=== PATIENT | male | born 1965 | race Caucasian/White ===

== ENCOUNTER 2021-06-10 15:06 | Emergency (ER) | payer BC ==
[~2021-06-10] VITALS: Ht 177.8 cm; Wt 97.7 kg
[2021-06-10 16:39] VITALS: BP 119/87
[2021-06-10] MEDS ORDERED: PRED20TA PO (17:31)
[2021-06-10] MEDS ORDERED: AZIT-63 PO (17:31)
== END 2021-06-10 18:02 | disposition home or self-care (01) ==
LOC: ER 15:07
DX: J40 Bronchitis, not specified as acute or chronic (principal); Z20.822 Contact with and (suspected) exposure to COVID-19; E84.9 Cystic fibrosis, unspecified; R05 Cough; R53.83 Other fatigue; Z79.2 Long term (current) use of antibiotics; Z79.899 Other long term (current) drug therapy
CPT/HCPCS: 71045; 87635; 99284; C9803

== ENCOUNTER 2024-04-28 15:03 | Inpatient (IN) | payer BC ==
[~2024-04-28] VITALS: Ht 177.8 cm; Wt 98.5 kg
[2024-04-28 15:45] LABS: BILIRUBIN,URINE MODERATE (Neg); CLARITY,URINE CLEAR (Clear); COLOR,URINE YELLOW (Yellow); GLUCOSE, URINE 250 mg/dl (Neg); KETONES,URINE >=80 mg/dl (Neg); LEUKOCYTE ESTERASE ,URINE NEGATIVE (Neg); NITRITES, URINE NEGATIVE (Neg); OCCULT BLOOD,URINE NEGATIVE (Neg); PH,URINE 5.5 (4.8-8.0); PROTEIN,URINE 30 mg/dl (Neg)
[2024-04-28 15:50] LABS: UA COLLECTION TYPE CLN CATCH MIDSTREAM
[2024-04-28 15:52] LABS: SQUAMOUS EPITHELIAL CELL,UR FEW /LPF (FEW)
[2024-04-28 15:53] LABS: BACTERIA,URINE FEW /HPF (Neg); HYALINE CASTS 0-3 /LPF (NEGATIVE); RBC,URINE NONE SEEN /HPF (0-2); WBC,URINE 0-4 /HPF (0-4)
[2024-04-28 16:02] LABS: BASOPHILS % (AUTO) 0.2 % (0-1); EOSINOPHILS % (AUTO) 0.2 % (0-6); HEMATOCRIT 50.7 % (42.0-52.0); HEMOGLOBIN 16.6 g/dl (14.0-17.9); LYMPHOCYTES # (AUTO) 1.1 X10'3 (1.1-4.8); LYMPHOCYTES % (AUTO) 9.1 % (21-51); MEAN CORPUSCULAR HEMOGLOBIN 31.1 PG (27.0-31.0); MEAN CORPUSCULAR HGB CONC 32.8 g/dL (33.0-36.5); MEAN CORPUSCULAR VOLUME 94.6 FL (78-98); MONOCYTES # (AUTO) 0.8 X10'3 (0-0.9); MONOCYTES % (AUTO) 6.5 % (2-12); PLATELET COUNT 218 X10'3 (140-440); RED BLOOD COUNT 5.36 X10'6 (4.70-6.10); RED CELL DISTRIBUTION WIDTH 14.5 % (11.5-14.5); WHITE BLOOD COUNT 11.9 X10'3 (4.5-11.0)
[2024-04-28 16:14] LABS: ALANINE AMINOTRANSFERASE 848 U/L (12-78); ALBUMIN 3.9 G/DL (3.4-5.0); ALKALINE PHOSPHATASE 347 IU/L (46-116); ANION GAP 13 (8-16); ASPARTATE AMINO TRANSFERASE 439 U/L (10-37); BILIRUBIN,TOTAL 6.3 MG/DL (0.1-1.0); BLOOD UREA NITROGEN 18 MG/DL (7-18); BUN/CREATININE RATIO 19.8 (10.0-20.0); CALCIUM 9.2 MG/DL (8.5-10.1); CHLORIDE 99 MMOL/L (99-107); CREATININE 0.91 MG/DL (0.60-1.10); GLUCOSE 89 MG/DL (70-104); SODIUM 136 MMOL/L (135-145); TOTAL CARBON DIOXIDE 23.6 MMOL/L (24-32); eCRCL 89 ML/MIN; eGFR 85 ML/MIN
[2024-04-28 16:49] LABS: TOTAL PROTEIN 7.7 G/DL (6.4-8.2)
[2024-04-28] MEDS: normal saline 1000ml 1,000 ML IV ONE (17:00)
[2024-04-28] MEDS: ondansetron/PF 4mg/2ml inj IV ONE (17:02)
[2024-04-28 17:08] LABS: LIPASE > 375 U/L (16-77)
[2024-04-28] MEDS ORDERED: SPIR25TA5 PO (18:11)
[2024-04-28] MEDS ORDERED: POTA-280 (18:11)
[2024-04-28] MEDS ORDERED: SACU1TAB PO (18:11)
[2024-04-28] MEDS ORDERED: CARV6.253 PO (18:11)
[2024-04-28] MEDS ORDERED: ATOR40TA72 PO (18:11)
[2024-04-28] MEDS ORDERED: FURO20TA4 PO (18:11)
[2024-04-28] MEDS ORDERED: CARV6.2553 PO (18:11)
[2024-04-28] MEDS ORDERED: EMPA10TA PO (18:11)
[2024-04-28] MEDS ORDERED: ASPI-611 PO (18:13)
[2024-04-28] MEDS ORDERED: acetaminophen 325mg tablet PO PRN (18:35)
[2024-04-28] MEDS ORDERED: potassium Cl 20 mEq SR tablet PO PRN (18:35)
[2024-04-28] MEDS ORDERED: morphine 2 MG/ML inj. syringe IV PRN ×2 (18:35)
[2024-04-28] MEDS ORDERED: magnesium Cl slow-release 64mg tablet PO PRN (18:35)
[2024-04-28] MEDS ORDERED: potassium Cl 40MEQ/1/2NS 520ml 520 ML IV PRN (18:35)
[2024-04-28] MEDS ORDERED: magnesium hydroxide 30ml (MOM) UD suspension PO PRN (18:35)
[2024-04-28] MEDS ORDERED: magnesium sulf-water 2g/50mL 50 ML IV PRN (18:35)
[2024-04-28] MEDS ORDERED: magnesium sulf-water 4G/100mL 100 ML IV PRN (18:35)
[2024-04-28 19:03] LABS: ETHANOL < 10 MG/DL (<10)
[2024-04-28 19:06] LABS: HEMOGLOBIN A1C 5.4 % (4.5-6.2)
[2024-04-28 19:07] LABS: ACETAMINOPHEN < 2.0 UG/ML (10-30)
[2024-04-28] MEDS: K and/or MAG REPLACEMENT MC SCH (20:00)
[2024-04-28] MEDS: normal saline 1000ml 1,000 ML IV SCH (20:13)
[2024-04-28 20:15] VITALS: BP 146/79; PULSE 83; RESP 16; TEMP 98; O2SAT 98
[2024-04-28] MEDS: ondansetron/PF 4mg/2ml inj IV PRN (20:23)
[2024-04-28 20:30] VITALS: RESP 16; O2SAT 98
[2024-04-28 22:00] VITALS: BP 142/82; PULSE 82; RESP 16; TEMP 98.3; O2SAT 98
[2024-04-29 03:50] VITALS: O2SAT 98
[2024-04-29] MEDS ORDERED: MELA5TAB12 PO (03:55)
[2024-04-29 06:00] VITALS: BP 137/78; PULSE 83; RESP 16; TEMP 97.3; O2SAT 95
[2024-04-29 08:19] LABS: BASOPHILS % (AUTO) 0.1 % (0-1); EOSINOPHILS % (AUTO) 0.1 % (0-6); HEMATOCRIT 46.3 % (42.0-52.0); HEMOGLOBIN 15.6 g/dl (14.0-17.9); LYMPHOCYTES # (AUTO) 0.9 X10'3 (1.1-4.8); LYMPHOCYTES % (AUTO) 7.9 % (21-51); MEAN CORPUSCULAR HEMOGLOBIN 31.7 PG (27.0-31.0); MEAN CORPUSCULAR HGB CONC 33.6 g/dL (33.0-36.5); MEAN CORPUSCULAR VOLUME 94.2 FL (78-98); MEAN PLATELET VOLUME 7.3 FL (7.4-10.4); MONOCYTES % (AUTO) 8.6 % (2-12); NEUTROPHILS % (AUTO) 83.3 % (42-75); PLATELET COUNT 208 X10'3 (140-440); RED BLOOD COUNT 4.92 X10'6 (4.70-6.10); RED CELL DISTRIBUTION WIDTH 14.2 % (11.5-14.5)
[2024-04-29 08:28] LABS: ALANINE AMINOTRANSFERASE 681 U/L (12-78); ALBUMIN 3.4 G/DL (3.4-5.0); ALKALINE PHOSPHATASE 325 IU/L (46-116); ANION GAP 11 (8-16); ASPARTATE AMINO TRANSFERASE 330 U/L (10-37); BILIRUBIN,TOTAL 5.3 MG/DL (0.1-1.0); BLOOD UREA NITROGEN 15 MG/DL (7-18); BUN/CREATININE RATIO 18.3 (10.0-20.0); CALCIUM 8.6 MG/DL (8.5-10.1); CHLORIDE 102 MMOL/L (99-107); CREATININE 0.82 MG/DL (0.60-1.10); GLUCOSE 69 MG/DL (70-104); HDL CHOLESTEROL 34 MG/DL (35-60); LDL CHOLESTEROL 51 MG/DL (50-100); POTASSIUM 3.7 MMOL/L (3.5-5.1); SODIUM 138 MMOL/L (135-145); TOTAL CARBON DIOXIDE 24.7 MMOL/L (24-32); eCRCL 99 ML/MIN; eGFR > 90 ML/MIN
[2024-04-29 08:29] LABS: CHOL/HDL RATIO 2.8 (0.00-4.99); CHOLESTEROL 95 MG/DL (0-200); TOTAL PROTEIN 6.7 G/DL (6.4-8.2); TRIGLYCERIDES 82 MG/DL (20-135)
[2024-04-29 09:19] LABS: BILIRUBIN,DIRECT 3.5 MG/DL (0-0.3)
[2024-04-29 11:09] LABS: INR 1.1 INR; PROTHROMBIN TIME 11.8 SECONDS (9.0-12.0)
[2024-04-29 12:00] VITALS: BP 141/80; PULSE 81; RESP 14; TEMP 98.1; O2SAT 94
[2024-04-29 14:04] LABS: LIPASE > 375 U/L (16-77)
[2024-04-29 18:00] VITALS: BP 135/74; PULSE 81; RESP 19; TEMP 97.8; O2SAT 95
[2024-04-29 20:00] VITALS: RESP 18; O2SAT 95
[2024-04-29] MEDS ORDERED: diatrozoate meglu/diatrozoate sod (37% iodine) 120ML oral solution PO SCH (21:10)
[2024-04-29] MEDS: carvedilol 6.25mg tablet PO SCH (21:19)
[2024-04-29] MEDS: Melatonin 3mg tablet PO SCH (21:20)
[2024-04-29] MEDS: sacubitril/valsartan 24mg-26mg tablet PO SCH (21:20)
[2024-04-29 22:00] VITALS: BP 130/79; PULSE 88; RESP 14; TEMP 98.2; O2SAT 95
[2024-04-30 03:20] VITALS: O2SAT 95
[2024-04-30 05:18] LABS: BASOPHILS % (AUTO) 0.1 % (0-1); EOSINOPHILS # (AUTO) 0.1 X10'3 (0-0.9); EOSINOPHILS % (AUTO) 0.9 % (0-6); HEMOGLOBIN 14.6 g/dl (14.0-17.9); LYMPHOCYTES # (AUTO) 1.2 X10'3 (1.1-4.8); LYMPHOCYTES % (AUTO) 9.9 % (21-51); MEAN CORPUSCULAR HEMOGLOBIN 31.2 PG (27.0-31.0); MEAN CORPUSCULAR HGB CONC 33.3 g/dL (33.0-36.5); MEAN CORPUSCULAR VOLUME 93.7 FL (78-98); MEAN PLATELET VOLUME 6.9 FL (7.4-10.4); MONOCYTES # (AUTO) 1.1 X10'3 (0-0.9); MONOCYTES % (AUTO) 9.4 % (2-12); NEUTROPHILS # (AUTO) 9.3 X10'3 (1.8-7.7); NEUTROPHILS % (AUTO) 79.7 % (42-75); PLATELET COUNT 197 X10'3 (140-440); WHITE BLOOD COUNT 11.7 X10'3 (4.5-11.0)
[2024-04-30 05:41] LABS: ALANINE AMINOTRANSFERASE 494 U/L (12-78); ALBUMIN 2.8 G/DL (3.4-5.0); ALBUMIN/GLOBULIN RATIO 0.8 (1.1-1.5); ALKALINE PHOSPHATASE 265 IU/L (46-116); ANION GAP 8 (8-16); ASPARTATE AMINO TRANSFERASE 202 U/L (10-37); BILIRUBIN,TOTAL 1.7 MG/DL (0.1-1.0); BLOOD UREA NITROGEN 12 MG/DL (7-18); CALCIUM 8.4 MG/DL (8.5-10.1); CHLORIDE 105 MMOL/L (99-107); CREATININE 0.75 MG/DL (0.60-1.10); GLUCOSE 92 MG/DL (70-104); POTASSIUM 3.6 MMOL/L (3.5-5.1); SODIUM 139 MMOL/L (135-145); TOTAL CARBON DIOXIDE 25.9 MMOL/L (24-32); TOTAL PROTEIN 6.2 G/DL (6.4-8.2); eCRCL 108 ML/MIN; eGFR > 90 ML/MIN
[2024-04-30 06:00] VITALS: BP 141/82; PULSE 83; RESP 17; TEMP 97.2; O2SAT 96
[2024-04-30 07:07] LABS: LIPASE 349 U/L (16-77)
[2024-04-30] MEDS: diatr meglu/diatrizoate 30ml oral sol.-(3 dose) bottle PO SCH (07:48)
[2024-04-30] MEDS: aspirin 81mg, enteric-coated 1 TAB TABLET.DR PO SCH (08:00)
[2024-04-30] MEDS: atorvastatin 20mg tablet PO SCH (08:00)
[2024-04-30] MEDS: furosemide 20MG tablet PO SCH (08:00)
[2024-04-30] MEDS: EMPAGLIFLOZIN 10 MG TABLET PO SCH (08:00)
[2024-04-30] MEDS ORDERED: iohexol 300mg/ml 100ml inj. ONE (10:47)
[2024-04-30 11:00] VITALS: BP 146/87; PULSE 87; RESP 16; TEMP 98.1; O2SAT 96
[2024-04-30 18:00] VITALS: BP 131/81; PULSE 83; RESP 17; TEMP 97.9; O2SAT 96
[2024-04-30 20:00] VITALS: RESP 17; O2SAT 96
[2024-04-30 22:00] VITALS: BP 143/78; PULSE 78; RESP 20; TEMP 98.7; O2SAT 96
[2024-05-01] VITALS (7 sets, daily range): BP systolic 120–143; BP diastolic 74–88; PULSE 74–84; RESP 16–20; TEMP 97.7–98.4; O2SAT 95–96
[2024-05-01 04:35] LABS: BASOPHILS % (AUTO) 0.2 % (0-1); EOSINOPHILS # (AUTO) 0.2 X10'3 (0-0.9); EOSINOPHILS % (AUTO) 2.1 % (0-6); HEMATOCRIT 43.2 % (42.0-52.0); HEMOGLOBIN 14.6 g/dl (14.0-17.9); LYMPHOCYTES # (AUTO) 1.4 X10'3 (1.1-4.8); LYMPHOCYTES % (AUTO) 12.8 % (21-51); MEAN CORPUSCULAR HEMOGLOBIN 31.7 PG (27.0-31.0); MEAN CORPUSCULAR HGB CONC 33.8 g/dL (33.0-36.5); MEAN CORPUSCULAR VOLUME 93.9 FL (78-98); MEAN PLATELET VOLUME 6.9 FL (7.4-10.4); MONOCYTES # (AUTO) 0.9 X10'3 (0-0.9); MONOCYTES % (AUTO) 8.2 % (2-12); NEUTROPHILS # (AUTO) 8.4 X10'3 (1.8-7.7); NEUTROPHILS % (AUTO) 76.7 % (42-75); PLATELET COUNT 218 X10'3 (140-440)
[2024-05-01 04:49] LABS: ALANINE AMINOTRANSFERASE 394 U/L (12-78); ALBUMIN 2.6 G/DL (3.4-5.0); ALBUMIN/GLOBULIN RATIO 0.7 (1.1-1.5); ALKALINE PHOSPHATASE 218 IU/L (46-116); ANION GAP 11 (8-16); ASPARTATE AMINO TRANSFERASE 137 U/L (10-37); BILIRUBIN,TOTAL 1.5 MG/DL (0.1-1.0); BLOOD UREA NITROGEN 12 MG/DL (7-18); BUN/CREATININE RATIO 16.7 (10.0-20.0); CALCIUM 8.4 MG/DL (8.5-10.1); CHLORIDE 105 MMOL/L (99-107); CREATININE 0.72 MG/DL (0.60-1.10); GLUCOSE 81 MG/DL (70-104); POTASSIUM 3.4 MMOL/L (3.5-5.1); SODIUM 143 MMOL/L (135-145); TOTAL CARBON DIOXIDE 26.6 MMOL/L (24-32); TOTAL PROTEIN 6.3 G/DL (6.4-8.2); eCRCL 113 ML/MIN; eGFR > 90 ML/MIN
[2024-05-01 05:06] LABS: APTT 26 SECONDS (22-32)
[2024-05-01 06:00] LABS: HBSAG SCREEN Negative (Negative); HEP A AB, IGM Negative (Negative); HEP B CORE AB, IGM Negative (Negative); HEPATITIS C VIRUS ANTIBODY Non Reactive (Non Reactive)
[2024-05-01] MEDS: potassium Cl 20 mEq SR tablet PO PRN (10:31)
[2024-05-01] MEDS ORDERED: potassium Cl 20 mEq SR tablet PO PRN (22:00)
[2024-05-02] VITALS (25 sets, daily range): BP systolic 116–181; BP diastolic 65–115; PULSE 67–95; RESP 12–23; TEMP 97.3–99; O2SAT 92–100
[2024-05-02 04:47] LABS: BASOPHILS % (AUTO) 0.3 % (0-1); EOSINOPHILS # (AUTO) 0.3 X10'3 (0-0.9); HEMATOCRIT 41.1 % (42.0-52.0); LYMPHOCYTES # (AUTO) 1.4 X10'3 (1.1-4.8); LYMPHOCYTES % (AUTO) 15.3 % (21-51); MEAN CORPUSCULAR HEMOGLOBIN 32.2 PG (27.0-31.0); MEAN CORPUSCULAR HGB CONC 34.1 g/dL (33.0-36.5); MEAN CORPUSCULAR VOLUME 94.5 FL (78-98); MEAN PLATELET VOLUME 6.6 FL (7.4-10.4); MONOCYTES # (AUTO) 0.7 X10'3 (0-0.9); MONOCYTES % (AUTO) 7.9 % (2-12); NEUTROPHILS # (AUTO) 6.9 X10'3 (1.8-7.7); NEUTROPHILS % (AUTO) 73.5 % (42-75); PLATELET COUNT 225 X10'3 (140-440); RED BLOOD COUNT 4.35 X10'6 (4.70-6.10); RED CELL DISTRIBUTION WIDTH 14.2 % (11.5-14.5); WHITE BLOOD COUNT 9.4 X10'3 (4.5-11.0)
[2024-05-02 05:02] LABS: ALANINE AMINOTRANSFERASE 285 U/L (12-78); ALBUMIN 2.4 G/DL (3.4-5.0); ALBUMIN/GLOBULIN RATIO 0.7 (1.1-1.5); ALKALINE PHOSPHATASE 179 IU/L (46-116); ANION GAP 10 (8-16); ASPARTATE AMINO TRANSFERASE 76 U/L (10-37); BILIRUBIN,TOTAL 1.1 MG/DL (0.1-1.0); BLOOD UREA NITROGEN 12 MG/DL (7-18); BUN/CREATININE RATIO 17.1 (10.0-20.0); CALCIUM 8.3 MG/DL (8.5-10.1); CHLORIDE 105 MMOL/L (99-107); GLUCOSE 85 MG/DL (70-104); MAGNESIUM 1.9 MG/DL (1.5-2.4); POTASSIUM 3.3 MMOL/L (3.5-5.1); SODIUM 141 MMOL/L (135-145); TOTAL CARBON DIOXIDE 25.9 MMOL/L (24-32); TOTAL PROTEIN 5.9 G/DL (6.4-8.2); eCRCL 116 ML/MIN; eGFR > 90 ML/MIN
[2024-05-02] MEDS: potassium Cl 40MEQ/1/2NS 520ml 520 ML IV PRN (05:53)
[2024-05-02] MEDS: BUPIVAcaine/PF 2.5mg/ml (0.25%) 10ml vial ONE (07:03)
[2024-05-02 07:21] LABS: PRE OP INR 1.1 INR; PRE OP PROTIME 11.4 SECONDS (9.0-12.0)
[2024-05-02] MEDS ORDERED: fentaNYL/PF 50MCG/1 ML 2ML syringe IV PRN ×2 (07:45)
[2024-05-02] MEDS ORDERED: enalaprilat dihydrate 2.5mg/2ml vial IV PRN (07:45)
[2024-05-02] MEDS ORDERED: morphine 2 MG/ML inj. syringe IV PRN (07:45)
[2024-05-02] MEDS ORDERED: labetalol 20mg/4ml (5mg/ml) syringe IV PRN (07:45)
[2024-05-02] MEDS: ringers solution, lacted 1,000 ML IV SCH (07:45)
[2024-05-02] MEDS ORDERED: ondansetron/PF 4mg/2ml inj IV PRN (07:45)
[2024-05-02] MEDS ORDERED: K and/or MAG REPLACEMENT MC SCH (08:00)
[2024-05-02] MEDS ORDERED: midazolam 1 mg/ML 2ml injection ONE (08:06)
[2024-05-02] MEDS ORDERED: fentaNYL/PF 50MCG/1 ML 2ML syringe ONE (08:06)
[2024-05-02] MEDS ORDERED: rocuronium 10mg/ml inj IV ONE ×3 (08:08→09:10)
[2024-05-02] MEDS ORDERED: ePHEDrine 50MG/ML INJ. ONE (08:08)
[2024-05-02] MEDS ORDERED: sugammadex 200mg/2ml injection IV ONE (08:09)
[2024-05-02] MEDS ORDERED: propofol inj 20 ML IV ONE (08:11)
[2024-05-02] MEDS ORDERED: LIDOcaine 2% (20mg/ml) 5ml vial ONE (08:11)
[2024-05-02] MEDS ORDERED: dexamethasone sod phosphate 4mg/ml inj. ONE (08:11)
[2024-05-02] MEDS ORDERED: ondansetron/PF 4mg/2ml inj ONE (08:12)
[2024-05-02] MEDS: INDOCYANINE GREEN 25 MG/10 ML VIAL IV ONE (08:22)
[2024-05-02] MEDS: BUPIVAcaine/PF 2.5 mg/ml (0.25%) 30ml vial IJ ONE (09:03)
[2024-05-02] MEDS ORDERED: albumin (Human) 5% 250ml 250 ML IV ONE (09:09)
[2024-05-02] MEDS: BUPIVAcaine 2.5mg/ml inj 50ml vial (contains preservative) ONE (10:14)
[2024-05-02] MEDS: acetaminophen 1,000mg/100ml IV 100 ML IV ONE (10:52)
[2024-05-02] MEDS ORDERED: naloxone 0.4 mg/ml inj IV PRN (11:05)
[2024-05-02] MEDS: morphine 4 MG/ML inj SYRINge IV PRN (11:11)
[2024-05-02] MEDS: carvedilol 6.25mg tablet PO ONE (13:26)
[2024-05-02] MEDS: HYDROcodone/acetaminophen 10/325mg tab PO PRN (13:27)
[2024-05-02] MEDS: ceFOXitin 2GM-NS 100mL ADDvant 100 ML IV SCH (14:13)
[2024-05-02] MEDS: mag hydrox/Alum hydrox/simeth 30ml oral suspension PO PRN (22:00)
[2024-05-03] VITALS (7 sets, daily range): BP systolic 110–139; BP diastolic 68–86; PULSE 55–85; RESP 14–20; TEMP 97.5–99.1; O2SAT 93–100
[2024-05-03 07:10] LABS: BASOPHILS % (AUTO) 0.3 % (0-1); EOSINOPHILS # (AUTO) 0.1 X10'3 (0-0.9); EOSINOPHILS % (AUTO) 0.6 % (0-6); HEMATOCRIT 44.4 % (42.0-52.0); HEMOGLOBIN 14.7 g/dl (14.0-17.9); LYMPHOCYTES # (AUTO) 1.4 X10'3 (1.1-4.8); LYMPHOCYTES % (AUTO) 14.9 % (21-51); MEAN CORPUSCULAR HEMOGLOBIN 31.2 PG (27.0-31.0); MEAN CORPUSCULAR HGB CONC 33.2 g/dL (33.0-36.5); MONOCYTES # (AUTO) 0.8 X10'3 (0-0.9); MONOCYTES % (AUTO) 8.4 % (2-12); NEUTROPHILS # (AUTO) 7.3 X10'3 (1.8-7.7); NEUTROPHILS % (AUTO) 75.8 % (42-75); PLATELET COUNT 257 X10'3 (140-440); RED BLOOD COUNT 4.72 X10'6 (4.70-6.10); RED CELL DISTRIBUTION WIDTH 14.1 % (11.5-14.5); WHITE BLOOD COUNT 9.6 X10'3 (4.5-11.0)
[2024-05-03 07:18] LABS: ALANINE AMINOTRANSFERASE 299 U/L (12-78); ALBUMIN 2.6 G/DL (3.4-5.0); ALBUMIN/GLOBULIN RATIO 0.7 (1.1-1.5); ALKALINE PHOSPHATASE 162 IU/L (46-116); ANION GAP 7 (8-16); ASPARTATE AMINO TRANSFERASE 152 U/L (10-37); BLOOD UREA NITROGEN 8 MG/DL (7-18); BUN/CREATININE RATIO 9.9 (10.0-20.0); CALCIUM 8.2 MG/DL (8.5-10.1); CHLORIDE 103 MMOL/L (99-107); CREATININE 0.81 MG/DL (0.60-1.10); GLUCOSE 118 MG/DL (70-104); MAGNESIUM 1.7 MG/DL (1.5-2.4); POTASSIUM 3.7 MMOL/L (3.5-5.1); SODIUM 138 MMOL/L (135-145); TOTAL CARBON DIOXIDE 28.2 MMOL/L (24-32); TOTAL PROTEIN 6.2 G/DL (6.4-8.2); eCRCL 100 ML/MIN; eGFR > 90 ML/MIN
[2024-05-04 06:05] LABS: MAGNESIUM 1.9 MG/DL (1.5-2.4)
[2024-05-04 07:25] VITALS: BP 125/78; PULSE 84; RESP 15; TEMP 97.4; O2SAT 94
[2024-05-04] MEDS: potassium Cl 20 mEq SR tablet PO PRN (08:40)
[2024-05-04 10:00] VITALS: BP 140/78; PULSE 85; RESP 16; TEMP 98.4; O2SAT 95
[2024-05-04 12:34] LABS: ALANINE AMINOTRANSFERASE 267 U/L (12-78); ALBUMIN 2.5 G/DL (3.4-5.0); ALBUMIN/GLOBULIN RATIO 0.7 (1.1-1.5); ALKALINE PHOSPHATASE 143 IU/L (46-116); ANION GAP 10 (8-16); ASPARTATE AMINO TRANSFERASE 111 U/L (10-37); BILIRUBIN,TOTAL 0.9 MG/DL (0.1-1.0); BLOOD UREA NITROGEN 7 MG/DL (7-18); BUN/CREATININE RATIO 7.6 (10.0-20.0); CALCIUM 8.1 MG/DL (8.5-10.1); CHLORIDE 104 MMOL/L (99-107); CREATININE 0.92 MG/DL (0.60-1.10); GLUCOSE 91 MG/DL (70-104); POTASSIUM 3.5 MMOL/L (3.5-5.1); SODIUM 140 MMOL/L (135-145); TOTAL CARBON DIOXIDE 26.4 MMOL/L (24-32); eCRCL 88 ML/MIN; eGFR 84 ML/MIN
[2024-05-04] MEDS ORDERED: SIME125C97 CORPAK (17:37)
[2024-05-04] MEDS ORDERED: PANT40TA54 PO (17:46)
[2024-05-04] MEDS: pantoprazole 40mg Tablet.DR PO SCH (17:52)
[2024-05-04] MEDS: HYDROcodone/acetaminophen 10/325mg tab PO ONE (17:52)
[2024-05-04] MEDS: simethicone 80mg chew tab PO SCH (17:52)
[2024-05-04 18:00] VITALS: BP 157/99; PULSE 60; RESP 17; TEMP 96.8; O2SAT 96
[2024-05-04] MEDS ORDERED: HYDR-3965 PO (18:15)
[2024-05-04] MEDS: ondansetron/PF 4mg/2ml inj IV PRN (19:43)
[2024-05-04 20:00] VITALS: RESP 17; O2SAT 96
[2024-05-04 22:00] VITALS: BP 131/92; PULSE 97; RESP 14; TEMP 97.2; O2SAT 93
[2024-05-05 06:10] LABS: MAGNESIUM 1.9 MG/DL (1.5-2.4); POTASSIUM 3.9 MMOL/L (3.5-5.1)
[2024-05-05 07:07] VITALS: BP 116/83; PULSE 92; RESP 14; TEMP 98.7; O2SAT 96
[2024-05-05 09:27] LABS: BASOPHILS % (AUTO) 0.1 % (0-1); EOSINOPHILS % (AUTO) 0.2 % (0-6); HEMATOCRIT 51.2 % (42.0-52.0); HEMOGLOBIN 17.1 g/dl (14.0-17.9); LYMPHOCYTES # (AUTO) 1.1 X10'3 (1.1-4.8); LYMPHOCYTES % (AUTO) 7.9 % (21-51); MEAN CORPUSCULAR HEMOGLOBIN 31.4 PG (27.0-31.0); MEAN CORPUSCULAR HGB CONC 33.4 g/dL (33.0-36.5); MEAN CORPUSCULAR VOLUME 93.9 FL (78-98); MEAN PLATELET VOLUME 6.8 FL (7.4-10.4); MONOCYTES # (AUTO) 0.9 X10'3 (0-0.9); MONOCYTES % (AUTO) 6.3 % (2-12); NEUTROPHILS # (AUTO) 12.1 X10'3 (1.8-7.7); NEUTROPHILS % (AUTO) 85.5 % (42-75); PLATELET COUNT 345 X10'3 (140-440); RED BLOOD COUNT 5.46 X10'6 (4.70-6.10); RED CELL DISTRIBUTION WIDTH 13.9 % (11.5-14.5); WHITE BLOOD COUNT 14.2 X10'3 (4.5-11.0)
[2024-05-05 09:40] LABS: ALANINE AMINOTRANSFERASE 209 U/L (12-78); ALBUMIN 2.5 G/DL (3.4-5.0); ALBUMIN/GLOBULIN RATIO 0.6 (1.1-1.5); ALKALINE PHOSPHATASE 136 IU/L (46-116); ANION GAP 14 (8-16); ASPARTATE AMINO TRANSFERASE 63 U/L (10-37); BLOOD UREA NITROGEN 11 MG/DL (7-18); BUN/CREATININE RATIO 14.5 (10.0-20.0); CALCIUM 8.6 MG/DL (8.5-10.1); CHLORIDE 99 MMOL/L (99-107); CREATININE 0.76 MG/DL (0.60-1.10); GLUCOSE 110 MG/DL (70-104); LIPASE 64 U/L (16-77); MAGNESIUM 1.9 MG/DL (1.5-2.4); PHOSPHORUS 4.8 MG/DL (2.3-4.5); SODIUM 136 MMOL/L (135-145); TOTAL CARBON DIOXIDE 23.1 MMOL/L (24-32); TOTAL PROTEIN 6.5 G/DL (6.4-8.2); eCRCL 107 ML/MIN; eGFR > 90 ML/MIN
[2024-05-05 10:59] VITALS: BP 143/96; PULSE 90; RESP 16; TEMP 97.2; O2SAT 95
[2024-05-05] MEDS: simethicone 80mg chew tab PO ONE (17:35)
[2024-05-05 18:00] VITALS: BP 154/97; PULSE 91; RESP 16; TEMP 96.5; O2SAT 96
[2024-05-05] MEDS: metoclopramide 5 mg/ml inj IV ONE (19:40)
[2024-05-05 20:00] VITALS: RESP 19; O2SAT 96
[2024-05-05] MEDS: morphine 2 MG/ML inj. syringe IV ONE (20:45)
[2024-05-05 22:00] VITALS: BP 152/90; PULSE 81; RESP 19; TEMP 98.3; O2SAT 96
[2024-05-05] MEDS: diatr meglu/diatrizoate 30ml oral sol.-(3 dose) bottle PO SCH (22:25)
[2024-05-06] VITALS (14 sets, daily range): BP systolic 123–157; BP diastolic 71–92; PULSE 72–88; RESP 14–20; TEMP 97.6–98.4; O2SAT 93–100
[2024-05-06] MEDS: pantoprazole 40mg Tablet.DR PO ONE (00:48)
[2024-05-06 07:40] LABS: BASOPHILS % (AUTO) 0.1 % (0-1); EOSINOPHILS % (AUTO) 0.2 % (0-6); HEMATOCRIT 46.7 % (42.0-52.0); HEMOGLOBIN 15.4 g/dl (14.0-17.9); LYMPHOCYTES # (AUTO) 0.9 X10'3 (1.1-4.8); LYMPHOCYTES % (AUTO) 6.1 % (21-51); MEAN CORPUSCULAR VOLUME 93.7 FL (78-98); MEAN PLATELET VOLUME 6.8 FL (7.4-10.4); MONOCYTES # (AUTO) 0.9 X10'3 (0-0.9); MONOCYTES % (AUTO) 6.6 % (2-12); NEUTROPHILS # (AUTO) 12.2 X10'3 (1.8-7.7); PLATELET COUNT 356 X10'3 (140-440); RED BLOOD COUNT 4.98 X10'6 (4.70-6.10); RED CELL DISTRIBUTION WIDTH 13.5 % (11.5-14.5); WHITE BLOOD COUNT 14.1 X10'3 (4.5-11.0)
[2024-05-06 08:29] LABS: ALANINE AMINOTRANSFERASE 177 U/L (12-78); ALBUMIN 2.6 G/DL (3.4-5.0); ALBUMIN/GLOBULIN RATIO 0.7 (1.1-1.5); ALKALINE PHOSPHATASE 112 IU/L (46-116); ANION GAP 11 (8-16); ASPARTATE AMINO TRANSFERASE 48 U/L (10-37); BILIRUBIN,TOTAL 0.9 MG/DL (0.1-1.0); BLOOD UREA NITROGEN 15 MG/DL (7-18); BUN/CREATININE RATIO 13.8 (10.0-20.0); CALCIUM 8.4 MG/DL (8.5-10.1); CHLORIDE 101 MMOL/L (99-107); CREATININE 1.09 MG/DL (0.60-1.10); GLUCOSE 120 MG/DL (70-104); POTASSIUM 4.3 MMOL/L (3.5-5.1); SODIUM 139 MMOL/L (135-145); TOTAL CARBON DIOXIDE 27.4 MMOL/L (24-32); TOTAL PROTEIN 6.1 G/DL (6.4-8.2); eCRCL 74 ML/MIN; eGFR 69 ML/MIN
[2024-05-06] MEDS ORDERED: iohexol 300mg/ml 100ml inj. ONE (09:23)
[2024-05-06] MEDS: HYDROmorphone inj. 0.5 MG/0.5 ML DISP.SYRIN IV PRN (13:34)
[2024-05-06] MEDS: BUPIVAcaine/PF 2.5mg/ml (0.25%) 10ml vial ONE (19:24)
[2024-05-06] MEDS ORDERED: sevoflurane 250ml liquid IH ONE (20:12)
[2024-05-06] MEDS ORDERED: midazolam 1 mg/ML 2ml injection ONE (20:19)
[2024-05-06] MEDS ORDERED: fentaNYL/PF 50MCG/1 ML 2ML syringe ONE (20:19)
[2024-05-06] MEDS: BUPIVAcaine/PF 2.5 mg/ml (0.25%) 30ml vial IJ ONE (20:49)
[2024-05-06] MEDS ORDERED: morphine 2 MG/ML inj. syringe IV PRN (21:10)
[2024-05-06] MEDS ORDERED: proCHLORperazine 10 MG/2 ml inj IV PRN (21:10)
[2024-05-06] MEDS ORDERED: meperidine/PF 25mg/ml syringe IV PRN ×2 (21:10)
[2024-05-06] MEDS ORDERED: ringers solution, lacted 1,000 ML IV SCH (21:10)
[2024-05-06] MEDS ORDERED: labetalol 20mg/4ml (5mg/ml) syringe IV PRN (21:10)
[2024-05-06] MEDS ORDERED: ondansetron/PF 4mg/2ml inj IV PRN ×2 (21:10→22:15)
[2024-05-06] MEDS ORDERED: morphine 4 MG/ML inj SYRINge IV PRN (21:10)
[2024-05-06] MEDS ORDERED: rocuronium 10mg/ml inj IV ONE ×2 (21:53)
[2024-05-06] MEDS ORDERED: albumin (Human) 5% 250ml 250 ML IV ONE (21:54)
[2024-05-06] MEDS ORDERED: propofol inj 20 ML IV ONE (21:54)
[2024-05-06] MEDS ORDERED: succinylcholine 20mg/ml inj IV ONE (21:54)
[2024-05-06] MEDS ORDERED: acetaminophen 1,000mg/100ml IV 100 ML IV ONE (21:56)
[2024-05-06] MEDS ORDERED: neostigmine methylsulfate 1 MG/ML 10ml vial ONE (21:58)
[2024-05-06] MEDS ORDERED: glycopyrrolate 0.2mg/ml inj ONE (21:58)
[2024-05-06] MEDS ORDERED: naloxone 0.4 mg/ml inj IV PRN (22:15)
[2024-05-06] MEDS: meperidine/PF 25mg/ml syringe IV PRN (22:46)
[2024-05-07] VITALS (11 sets, daily range): BP systolic 104–155; BP diastolic 58–91; PULSE 68–89; RESP 16–20; TEMP 98–99.5; O2SAT 92–96
[2024-05-07 06:01] LABS: BASOPHILS % (AUTO) 0 % (0-1); EOSINOPHILS % (AUTO) 0 % (0-6); HEMOGLOBIN 13.8 g/dl (14.0-17.9); LYMPHOCYTES # (AUTO) 0.8 X10'3 (1.1-4.8); MEAN CORPUSCULAR HEMOGLOBIN 31.1 PG (27.0-31.0); MEAN CORPUSCULAR VOLUME 94.4 FL (78-98); MEAN PLATELET VOLUME 6.9 FL (7.4-10.4); MONOCYTES # (AUTO) 0.9 X10'3 (0-0.9); MONOCYTES % (AUTO) 7.5 % (2-12); NEUTROPHILS # (AUTO) 10.2 X10'3 (1.8-7.7); NEUTROPHILS % (AUTO) 85.5 % (42-75); PLATELET COUNT 306 X10'3 (140-440); RED BLOOD COUNT 4.45 X10'6 (4.70-6.10); RED CELL DISTRIBUTION WIDTH 13.8 % (11.5-14.5)
[2024-05-07 06:10] LABS: ALBUMIN 2.5 G/DL (3.4-5.0); ANION GAP 9 (8-16); BLOOD UREA NITROGEN 17 MG/DL (7-18); BUN/CREATININE RATIO 19.8 (10.0-20.0); CALCIUM 8.1 MG/DL (8.5-10.1); CHLORIDE 104 MMOL/L (99-107); CREATININE 0.86 MG/DL (0.60-1.10); GLUCOSE 137 MG/DL (70-104); LIPASE 35 U/L (16-77); SODIUM 140 MMOL/L (135-145); TOTAL CARBON DIOXIDE 27.4 MMOL/L (24-32); eCRCL 94 ML/MIN; eGFR > 90 ML/MIN
[2024-05-07] MEDS ORDERED: acetaminophen 325mg tablet NG PRN (20:55)
[2024-05-07] MEDS: Melatonin 3mg tablet NG SCH (21:01)
[2024-05-07] MEDS: carvedilol 6.25mg tablet PO ONE (21:02)
[2024-05-07] MEDS ORDERED: HYDROcodone/acetaminophen 7.5MG/325MG per 15ml UD CUP NG PRN (21:06)
[2024-05-07] MEDS ORDERED: mag hydrox/Alum hydrox/simeth 30ml oral suspension NG PRN (21:07)
[2024-05-07] MEDS ORDERED: magnesium hydroxide 30ml (MOM) UD suspension NG PRN (21:07)
[2024-05-08] VITALS (7 sets, daily range): BP systolic 134–152; BP diastolic 77–86; PULSE 76–97; RESP 16–20; TEMP 97.8–98.8; O2SAT 92–95
[2024-05-08 06:15] LABS: BASOPHILS % (AUTO) 0 % (0-1); EOSINOPHILS # (AUTO) 0.1 X10'3 (0-0.9); EOSINOPHILS % (AUTO) 0.5 % (0-6); HEMATOCRIT 42.3 % (42.0-52.0); HEMOGLOBIN 14.1 g/dl (14.0-17.9); LYMPHOCYTES # (AUTO) 1.2 X10'3 (1.1-4.8); LYMPHOCYTES % (AUTO) 11.9 % (21-51); MEAN CORPUSCULAR HEMOGLOBIN 31.3 PG (27.0-31.0); MEAN CORPUSCULAR HGB CONC 33.2 g/dL (33.0-36.5); MEAN PLATELET VOLUME 6.8 FL (7.4-10.4); MONOCYTES # (AUTO) 1.1 X10'3 (0-0.9); MONOCYTES % (AUTO) 11.7 % (2-12); NEUTROPHILS # (AUTO) 7.5 X10'3 (1.8-7.7); NEUTROPHILS % (AUTO) 75.9 % (42-75); PLATELET COUNT 311 X10'3 (140-440); RED CELL DISTRIBUTION WIDTH 13.7 % (11.5-14.5); WHITE BLOOD COUNT 9.9 X10'3 (4.5-11.0)
[2024-05-08 06:25] LABS: ALBUMIN 2.4 G/DL (3.4-5.0); ANION GAP 8 (8-16); BLOOD UREA NITROGEN 15 MG/DL (7-18); BUN/CREATININE RATIO 17.2 (10.0-20.0); CHLORIDE 104 MMOL/L (99-107); CREATININE 0.87 MG/DL (0.60-1.10); GLUCOSE 99 MG/DL (70-104); POTASSIUM 3.4 MMOL/L (3.5-5.1); SODIUM 142 MMOL/L (135-145); TOTAL CARBON DIOXIDE 30.3 MMOL/L (24-32); eCRCL 93 ML/MIN; eGFR 90 ML/MIN
[2024-05-08] MEDS: atorvastatin 20mg tablet NG SCH (08:03)
[2024-05-08] MEDS: carvedilol 6.25mg tablet NG SCH (08:04)
[2024-05-08] MEDS: aspirin 81mg tab.chew NG SCH (08:04)
[2024-05-08] MEDS: EMPAGLIFLOZIN 10 MG TABLET NG SCH (08:04)
[2024-05-08] MEDS ORDERED: furosemide 40 MG/4 ML oral solution UD cup NG SCH (08:31)
[2024-05-08] MEDS: furosemide 40 MG/4 ML oral solution UD cup NG ONE (09:10)
[2024-05-08] MEDS: normal saline 1000ml 1,000 ML IV SCH (12:15)
[2024-05-08] MEDS ORDERED: magnesium sulf-water 2g/50mL 50 ML IV PRN (12:20)
[2024-05-08] MEDS ORDERED: magnesium sulf-water 4G/100mL 100 ML IV PRN (12:20)
[2024-05-08] MEDS: Chloraseptic (Phenol) Spray 177ml MM PRN (13:36)
[2024-05-08] MEDS: potassium Cl 40MEQ/1/2NS 520ml 520 ML IV PRN (16:11)
[2024-05-08] MEDS: K and/or MAG REPLACEMENT MC SCH (19:40)
[2024-05-09 06:00] VITALS: BP 130/74; PULSE 81; RESP 16; TEMP 98.5; O2SAT 93
[2024-05-09 06:01] LABS: BASOPHILS % (AUTO) 0.1 % (0-1); EOSINOPHILS # (AUTO) 0.2 X10'3 (0-0.9); EOSINOPHILS % (AUTO) 1.7 % (0-6); HEMATOCRIT 39.3 % (42.0-52.0); HEMOGLOBIN 13.1 g/dl (14.0-17.9); LYMPHOCYTES # (AUTO) 1.2 X10'3 (1.1-4.8); LYMPHOCYTES % (AUTO) 10.9 % (21-51); MEAN CORPUSCULAR HEMOGLOBIN 31.4 PG (27.0-31.0); MEAN CORPUSCULAR HGB CONC 33.4 g/dL (33.0-36.5); MEAN CORPUSCULAR VOLUME 94.3 FL (78-98); NEUTROPHILS # (AUTO) 8.6 X10'3 (1.8-7.7); NEUTROPHILS % (AUTO) 78.3 % (42-75); PLATELET COUNT 282 X10'3 (140-440); RED BLOOD COUNT 4.17 X10'6 (4.70-6.10); RED CELL DISTRIBUTION WIDTH 13.5 % (11.5-14.5)
[2024-05-09 06:19] LABS: ALBUMIN 2.2 G/DL (3.4-5.0); ANION GAP 8 (8-16); BLOOD UREA NITROGEN 9 MG/DL (7-18); BUN/CREATININE RATIO 11.7 (10.0-20.0); CALCIUM 7.7 MG/DL (8.5-10.1); CHLORIDE 102 MMOL/L (99-107); CREATININE 0.77 MG/DL (0.60-1.10); GLUCOSE 91 MG/DL (70-104); POTASSIUM 3.2 MMOL/L (3.5-5.1); SODIUM 139 MMOL/L (135-145); TOTAL CARBON DIOXIDE 29.1 MMOL/L (24-32); eCRCL 105 ML/MIN; eGFR > 90 ML/MIN
[2024-05-09] MEDS ORDERED: magnesium Cl slow-release 64mg tablet PO PRN (07:30)
[2024-05-09] MEDS ORDERED: potassium Cl 20 mEq SR tablet PO PRN (07:30)
[2024-05-09 08:00] VITALS: RESP 16
[2024-05-09] MEDS: potassium Cl 20 mEq SR tablet PO PRN (09:08)
[2024-05-09 10:00] VITALS: BP 130/82; PULSE 92; RESP 16; TEMP 97.2; O2SAT 96
[2024-05-09] MEDS ORDERED: HYDROcodone/acetaminophen 10/325mg tab PO PRN (10:50)
[2024-05-09] MEDS ORDERED: CEFD300C3 PO (14:10)
== END 2024-05-09 16:30 | disposition home or self-care (01) | DRG 417 ==
LOC: ER 15:04 → ED HOLD 18:41 → SUR 3N 20:12
PROVIDERS: ADMIT Family Medicine; ATTEND Family Medicine
PROC: BW211ZZ Computerized Tomography (CT Scan) of Abdomen and Pelvis using Low Osmolar Contrast (ICD-10-PCS; 2024-04-30)
PROC: 0WQF0ZZ Repair Abdominal Wall, Open Approach (ICD-10-PCS; 2024-05-02)
PROC: 0DNW4ZZ Release Peritoneum, Percutaneous Endoscopic Approach (ICD-10-PCS; 2024-05-02)
PROC: 8E0W4CZ Robotic Assisted Procedure of Trunk Region, Percutaneous Endoscopic Approach (ICD-10-PCS; 2024-05-02)
PROC: 8E0W4CZ Robotic Assisted Procedure of Trunk Region, Percutaneous Endoscopic Approach (ICD-10-PCS; 2024-05-02)
PROC: 0FT44ZZ Resection of Gallbladder, Percutaneous Endoscopic Approach (ICD-10-PCS; principal; 2024-05-02 08:28)
PROC: 0WUF4JZ Supplement Abdominal Wall with Synthetic Substitute, Percutaneous Endoscopic Approach (ICD-10-PCS; 2024-05-05)
PROC: 8E0W4CZ Robotic Assisted Procedure of Trunk Region, Percutaneous Endoscopic Approach (ICD-10-PCS; 2024-05-05)
PROC: BW251ZZ Computerized Tomography (CT Scan) of Chest, Abdomen and Pelvis using Low Osmolar Contrast (ICD-10-PCS; 2024-05-06)
DX: K80.62 Calculus of gallbladder and bile duct with acute cholecystitis without obstruction (principal); K42.1 Umbilical hernia with gangrene; K75.0 Abscess of liver; K85.10 Biliary acute pancreatitis without necrosis or infection; I50.22 Chronic systolic (congestive) heart failure; K56.50 Intestinal adhesions [bands], unspecified as to partial versus complete obstruction; R74.01 Elevation of levels of liver transaminase levels; R74.8 Abnormal levels of other serum enzymes; I11.0 Hypertensive heart disease with heart failure; E78.5 Hyperlipidemia, unspecified; Z86.16 Personal history of COVID-19; Z95.0 Presence of cardiac pacemaker
CPT/HCPCS: 93306; 99285; Z7506; Z7508; 36415; 71045; 71260; 74177; 74181; 76700; 80048; 80053; 80061; 80074; 80320; 80329; 81001; 82248; 82948; 83036; 83605; 83690; 83735; 84100; 84132; 84145; 85025; 85610; 85730; 87081; 93005; A4215; A4615; A4618; A6212; A6223; A6253; A6258; A6402; A6449; A7000; C1781; G0378; J0131; J0330; J0694; J1100; J1170; J2175; J2250; J2270; J2405; J2704; J2710; J2765; J3010; J3480; J3490; J7030; J7120; P9045; Q9963; Q9967